=== PATIENT | male | born 1970 | race Caucasian/White ===

== ENCOUNTER 2021-03-16 10:47 | Emergency (ER) | payer OTHER ==
[~2021-03-16] VITALS: Ht 188 cm; Wt 107.8 kg
[2021-03-16] MEDS ORDERED: KETOROLAC 30MG/ML VIAL IV STA (11:12)
[2021-03-16 11:28] LABS: BASOPHILS % 0.6 % (0.0-2.0); EOSINOPHILS % 1.8 % (0.0-5.0); HEMATOCRIT. 46.1 % (42.0-52.0); HEMOGLOBIN. 15.1 g/dL (14.0-18.0); LYMPHOCYTES % 17.2 % (20.0-50.0); MEAN CORPUSCULAR HEMOGLOBIN 25.1 pg (28.0-32.0); MEAN CORPUSCULAR VOLUME 76.3 fL (80.0-94.0); MEAN PLATELET VOLUME 9.1 fl (7.4-10.4); MONOCYTES % 9.4 % (2.0-8.0); PLATELET 264 x1000/uL (130-400); RED BLOOD CELL COUNT 6.04 mill/uL (4.7-6.1); RED CELL DISTRIBUTION WIDTH 14.7 % (11.6-14.6)
[2021-03-16 11:30] LABS: CHLORIDE 108 mEq/L (98-107)
[2021-03-16 11:31] LABS: CLARITY URINE CLEAR (CLEAR); COLOR URINE YELLOW (YELLOW); KETONES URINE TRACE (NEGATIVE); LEUKOCYTE ESTERASE URINE NEGATIVE (NEGATIVE); NITRITE URINE NEGATIVE (NEGATIVE); OCCULT BLOOD URINE NEGATIVE (NEGATIVE); PROTEIN URINE NEGATIVE (NEGATIVE); SPECIFIC GRAVITY URINE 1.027 (1.005-1.030); UROBILINOGEN URINE 0.2 E.U./dL (0.2-1.0)
[2021-03-16 11:32] LABS: PROTHROMBIN TIME 10.9 sec (9.6-11.0)
[2021-03-16] MEDS ORDERED: LEVO750T46 PO (12:39)
[2021-03-16] MEDS ORDERED: METR500T PO (12:39)
[2021-03-16] MEDS ORDERED: TOPUD PO (12:39)
[2021-03-16 12:41] VITALS: BP 119/83
[2021-03-16] MEDS ORDERED: METRONIDAZOLE 500MG TABLET PO ONE (12:45)
[2021-03-16] MEDS ORDERED: LEVOFLOXACIN 750MG PREMIX 150 ML IV ONE (12:45)
== END 2021-03-16 13:05 | disposition home or self-care (01) ==
LOC: ER 12:01
DX: K57.92 Diverticulitis of intestine, part unspecified, without perforation or abscess without bleeding (principal)
CPT/HCPCS: 36415; 74176; 76870; 80053; 81003; 83690; 85025; 85610; 93976; 96374; 99285; J1885

== ENCOUNTER 2021-12-16 13:21 | Emergency (ER) | payer OTHER ==
[~2021-12-16] VITALS: Ht 188 cm; Wt 107.0 kg
[~2021-12-16 13:21] MED LIST: LEVO750T46 PO; METR500T PO; TOPUD PO
[2021-12-16] MEDS ORDERED: ACETAMINOPHEN 500MG TABLET PO ONE (14:00)
[2021-12-16 14:15] LABS: BASOPHILS % 0.8 % (0.0-2.0); EOSINOPHILS % 2.2 % (0.0-5.0); HEMATOCRIT. 44.9 % (42.0-52.0); HEMOGLOBIN. 14.8 g/dL (14.0-18.0); LYMPHOCYTES % 18.9 % (20.0-50.0); MEAN CORPUSCULAR HEMOGLOBIN 24.7 pg (28.0-32.0); MEAN CORPUSCULAR VOLUME 74.7 fL (80.0-94.0); MEAN PLATELET VOLUME 8.9 fl (7.4-10.4); MONOCYTES % 8.8 % (2.0-8.0); NEUTROPHILS % 69.3 % (40.0-76.0); PLATELET 236 x1000/uL (130-400); RED BLOOD CELL COUNT 6.01 mill/uL (4.7-6.1); RED CELL DISTRIBUTION WIDTH 14.5 % (11.6-14.6)
[2021-12-16 14:20] LABS: CHLORIDE 105 mEq/L (98-107)
[2021-12-16] MEDS ORDERED: LIDOCAINE HCL 1% 20ML VIAL (Pyxis) INJ INFIL ONE (14:30)
[2021-12-16] MEDS ORDERED: CEPH250C2 MT (15:33)
[2021-12-16] MEDS ORDERED: SULF1TAB48 MT (15:33)
[2021-12-16 16:02] VITALS: BP 132/77
== END 2021-12-16 16:04 | disposition home or self-care (01) ==
LOC: ER 13:21
DX: N61.0 Mastitis without abscess (principal)
CPT/HCPCS: 10060; 36415; 80053; 85025; 99283; J3490

== ENCOUNTER 2022-02-24 21:55 | Emergency (ER) | payer OTHER ==
[~2022-02-24] VITALS: Ht 188 cm; Wt 120.0 kg
[~2022-02-24 21:55] MED LIST changes: +CEPH250C2 MT; +SULF1TAB48 MT
[2022-02-24 22:19] VITALS: BP 150/90
[2022-02-24 23:18] LABS: BASOPHILS % 0.9 % (0.0-2.0); EOSINOPHILS % 1.3 % (0.0-5.0); HEMATOCRIT. 44.1 % (42.0-52.0); HEMOGLOBIN. 14.3 g/dL (14.0-18.0); LYMPHOCYTES % 17.5 % (20.0-50.0); MEAN CORPUSCULAR HEMOGLOBIN 24.4 pg (28.0-32.0); MEAN CORPUSCULAR VOLUME 75.5 fL (80.0-94.0); MEAN PLATELET VOLUME 9.1 fl (7.4-10.4); MONOCYTES % 9.7 % (2.0-8.0); NEUTROPHILS % 70.6 % (40.0-76.0); PLATELET 273 x1000/uL (130-400); RED BLOOD CELL COUNT 5.84 mill/uL (4.7-6.1); RED CELL DISTRIBUTION WIDTH 14.1 % (11.6-14.6)
[2022-02-24 23:28] LABS: CHLORIDE 104 mEq/L (98-107)
[2022-02-25] MEDS ORDERED: IOHEXOL-300 100 ML BOTTLE ONE (01:48)
[2022-02-25] MEDS ORDERED: ONDANSETRON HCL 4MG/2ML INJ IV STA (02:16)
[2022-02-25] MEDS ORDERED: MORPHINE SULFATE 4 MG/ML CPJ (NOT FOR IM USE) IV STA (02:16)
[2022-02-25] MEDS ORDERED: LIDOCAINE HCL/PF 1% 10 MG/ML 5ML VIAL INFIL ONE (03:45)
[2022-02-25] MEDS ORDERED: BACITRACIN ZINC OINT UDPKT TOP ONE (03:45)
[2022-02-25] MEDS ORDERED: TETANUS, DIPHTHERIA, PERTUSSIS VAC/PF 0.5ML (>10YR OLD) IM ONE (03:45)
[2022-02-25] MEDS ORDERED: LIDOCAINE HCL 1% 20ML VIAL (Pyxis) INJ INFIL SCH (04:00)
[2022-02-25] MEDS ORDERED: T3 PO (04:14)
[2022-02-25] MEDS ORDERED: CEPH500T MT (04:14)
[2022-02-25] MEDS ORDERED: SULF1TAB48 MT (04:14)
[2022-02-25] MEDS ORDERED: CLOT15CR5 TP (04:14)
[2022-02-25] MEDS ORDERED: ONDANSETRON HCL 4MG/2ML INJ IV SCH (04:30)
[2022-02-25] MEDS ORDERED: MORPHINE SULFATE 4 MG/ML CPJ (NOT FOR IM USE) IV SCH (04:30)
== END 2022-02-25 05:14 | disposition home or self-care (01) ==
LOC: ER 21:55
DX: L02.31 Cutaneous abscess of buttock (principal); R10.84 Generalized abdominal pain; R11.2 Nausea with vomiting, unspecified; Z90.49 Acquired absence of other specified parts of digestive tract; Z98.890 Other specified postprocedural states; Z79.899 Other long term (current) drug therapy
CPT/HCPCS: 36415; 74177; 80053; 85025; 90471; 90715; 96374; 96375; 99285; J2270; J2405; J3490; Q9967; Z7610

== ENCOUNTER 2022-03-24 13:33 | Emergency (ER) | payer MEDICAID, OTHER ==
[~2022-03-24] VITALS: Ht 188 cm; Wt 118.0 kg
[~2022-03-24 13:33] MED LIST changes: +CEPH500T MT; +CLOT15CR5 TP; +T3 PO
[2022-03-24] MEDS ORDERED: IBUPROFEN 600MG TABLET PO ONE (13:45)
[2022-03-24] MEDS ORDERED: BACITRACIN ZINC OINT UDPKT TOP ONE (13:45)
[2022-03-24] MEDS ORDERED: LIDOCAINE HCL/EPINEPHRINE 1%-EPI 1:100,000 20 ML VIAL INFIL ONE (13:45)
[2022-03-24] MEDS ORDERED: ACETAMINOPHEN 325MG TABLET PO ONE (13:45)
[2022-03-24] MEDS ORDERED: ACETAMINOPHEN 325MG TABLET PO NR (16:19)
[2022-03-24] MEDS ORDERED: BACITRACIN ZINC OINT UDPKT TOP NR (16:20)
[2022-03-24] MEDS ORDERED: IBUPROFEN 600MG TABLET PO NR (16:20)
[2022-03-24] MEDS ORDERED: LIDOCAINE HCL/EPINEPHRINE 1%-EPI 1:100,000 20 ML VIAL INFIL NR (16:30)
[2022-03-24 16:51] VITALS: BP 133/87
[2022-03-24] MEDS ORDERED: IBUP-2029 MT (16:55)
[2022-03-24] MEDS ORDERED: CEPH500C2 MT (16:55)
== END 2022-03-24 17:37 | disposition home or self-care (01) ==
LOC: ER 13:33
DX: L02.31 Cutaneous abscess of buttock (principal); Z90.49 Acquired absence of other specified parts of digestive tract
CPT/HCPCS: 10060; 99284; J3490